=== PATIENT | male | born 1985 ===

== ENCOUNTER 2017-01-25 11:20 | Emergency (ER) | payer MEDICAID ==
[2017-01-25 11:29] VITALS: TEMP 97.5
--- NOTE | 2017-01-25 11:58 | ED PDOC ---
Arrival/HPI <Rosa Puckett - Last Filed: 01/25/17 14:32> - General Historian: Patient - History of Present Illness Time/Duration: < week Symptom Onset: Gradual Symptom Course: Unchanged Context: Walking <Mahad Mulligan - Last Filed: 01/25/17 14:45> - General Chief Complaint: Back Pain Time Seen by Provider: 01/25/17 11:23 - History of Present Illness Narrative History of Present Illness (Text): 01/25/17 11:53 31 y/o male with hx of gastric/duodenal ulcer with hx of GI bleeding presents with complaints of right flank pain. Patient states pain started 2 to 3 days ago and has persisted since then. Pain is described as aching in nature without radiation into abdomen or distally into RLE. He notes the pain is worse with activity and typically relieved with rest. He reports no trauma or injury to his back or spine. He denies GI symptoms including n/v/d, dark or bloody stools. He notes increased urinary frequency but denies dysuria or hematuria. He reports not fever, chills, sick contacts or other systemic symptoms. 01/25/17 11:59 (Mahad Mulligan) Past Medical History - Provider Review Nursing Documentation Reviewed: Yes - Past History Past History: Non-Contributing - Infectious Disease Hx of Infectious Diseases: None - Tetanus Immunization Tetanus Immunization: Unknown - Cardiac Hx Cardiac Disorders: No - Pulmonary Hx Respiratory Disorders: No - Neurological Hx Neurological Disorder: No - HEENT Hx HEENT Disorder: No - Renal Hx Renal Disorder: No - Endocrine/Metabolic Hx Endocrine Disorders: No - Hematological/Oncological Hx Blood Disorders: No - Integumentary Hx Dermatological Disorder: No - Musculoskeletal/Rheumatological Hx Musculoskeletal Disorders: No - Gastrointestinal Hx Gastrointestinal Disorders: Yes Hx Gastrointestinal Ulcer: Yes - Genitourinary/Gynecological Hx Genitourinary Disorders: No - Psychiatric Hx Psychophysiologic Disorder: No Hx Substance Use: No - Past Surgical History Past Surgical History: No Previous <Mahad Mulligan - Last Filed: 01/25/17 14:45> Family/Social History - Physician Review Nursing Documentation Reviewed: Yes Family/Social History: Diabetes Smoking Status: Never Smoked Hx Alcohol Use: Yes Frequency of alcohol use: Socially Hx Substance Use: No <Mahad Mulligan - Last Filed: 01/25/17 14:45> Allergies/Home Meds <Rosa Puckett - Last Filed: 01/25/17 14:32> <Mahad Mulligan - Last Filed: 01/25/17 14:45> Allergies/Adverse Reactions: Allergies No Known Allergies Allergy (Verified 01/25/17 11:25) Home Medications: Home Meds Medication Instructions Recorded Confirmed No Known Home Med 01/25/17 01/25/17 Review of Systems - Physician Review All systems were reviewed & negative as marked: Yes - Review of Systems Constitutional: absent: Fatigue, Fevers Eyes: Normal ENT: Normal Respiratory: absent: SOB, Cough Cardiovascular: absent: Chest Pain, Palpitations Gastrointestinal: Abdominal Pain (right flank pain ). absent: Diarrhea, Nausea , Vomiting Genitourinary Male: Frequency. absent: Dysuria, Hematuria Musculoskeletal: Back Pain (+ right flank pain ). absent: Neck Pain Skin: absent: Rash, Pruritis Neurological: absent: Headache, Dizziness, Focal Weakness Psychiatric: absent: Anxiety, Depression <Mahad Mulligan - Last Filed: 01/25/17 14:45> Physical Exam Vital Signs Reviewed: Yes Temperature: Afebrile Blood Pressure: Normal Pulse: Regular Respiratory Rate: Normal Appearance: Positive for: Well-Appearing Pain Distress: Mild Mental Status: Positive for: Alert and Oriented X 3 - Systems Exam Head: Present: Atraumatic, Normocephalic Pupils: Present: PERRL Extroacular Muscles: Present: EOMI Conjunctiva: Present: Normal Mouth: Present: Moist Mucous Membranes Pharnyx: Present: Normal Neck: Present: Normal Range of Motion Respiratory/Chest: Present: Clear to Auscultation. No: Respiratory Distress, Accessory Muscle Use, Wheezes, Rales, Rhonchi Cardiovascular: Present: Regular Rate and Rhythm, Normal S1, S2 Abdomen: Present: Normal Bowel Sounds. No: Tenderness, Distention, Peritoneal Signs, Guarding Back: Present: Normal Inspection. No: CVA Tenderness, Midline Tenderness, Paraspinal Tenderness Upper Extremity: Present: Normal Inspection. No: Cyanosis, Edema Lower Extremity: Present: Normal Inspection, NORMAL PULSES. No: Edema, CALF TENDERNESS Neurological: Present: GCS=15, CN II-XII Intact, Speech Normal Skin: Present: Warm, Dry. No: Rashes Psychiatric: Present: Alert, Oriented x 3, Normal Insight, Normal Concentration <Mahad Mulligan - Last Filed: 01/25/17 14:45> Vital Signs Temp Pulse Resp BP Pulse Ox 01/25/17 12:00 88 18 124/77 100 01/25/17 11:25 97.5 F L 87 17 119/74 99 Medical Decision Making <Rosa Puckett - Last Filed: 01/25/17 14:32> <Mahad Mulligan - Last Filed: 01/25/17 14:45> ED Course and Treatment: 01/25/17 12:29 Patient seen and examined with medical or surgical instrument maker. I have examined patient and interviewed patient at bedside. He reports pain to right side for past three days. Denies chest pain, cough or shortness of breath. Denies abdominal pain. Denies association with meals or bleeding. Denies dark or bloody stool. On exam, no abdominal pain or Leslie's signs. No vesicular rash. No cva tenderness. Lungs clear. No prior records available for review, although patient with history of "bleeding ulcer" in past. Patient's pain not colicky, appears worse with walking. Denies overdose or inappropriate use of medication. 01/25/17 14:32 Patient is in no distress with serial exams. No hypoxia, no abdominal pain. Not hypotensive or tachycardic. UA without microscopic blood. Exam NOT consistent with uti or pyelo currently. Suspect possible muscular etiology of pain. Patient is not suicidal or homidical or aggressive in ED. Cooperative, no signs of active hallucinations. (Rosa Puckett) 01/25/17 12:12 31 y/o male w/ hx GI ulcer presenting with right flank pain 2/2 renal stone vs musculoskeletal strain vs appendicitis GI etiology. Patient is resting comfortably, clinically stable. Afebrile and without significant pain. - CBC - CMP - UA - pain management - will reassess 01/25/17 14:24 Pain improved with Ibuprofen 600mg PO. Labs and urine reviewed. There is no evidence of UTI or renal stone on UA. There is no leukocytosis, evidence of renal failure or electrolyte derangement evident on laboratory results. Patient' s complaints are likely related to musculoskeletal straining. He will be advised to avoid heavy lifting and strenuous activity for 1 week to 10 days. He will be advised to f/u at [facility] for continued management of his back pain. (Mahad Mulligan) - Lab Interpretations Lab Results: 01/25/17 12:45 01/25/17 12:45 Lab Results 01/25/17 14:15: Urine Color Yellow, Urine Appearance Clear, Urine pH 6.5, Ur Specific [place] 1.025, Urine Protein Negative, Urine Glucose (UA) Negative, Urine Ketones 15 H, Urine Blood Negative, Urine Nitrate Negative, Urine Bilirubin Negative, Urine Urobilinogen 0.2, Ur Leukocyte Esterase Negative 01/25/17 12:45: WBC 5.6, RBC 4.83, Hgb 15.6, Hct 43.2, MCV 89.4, MCH 32.3, MCHC 36.1, RDW 12.5, Plt Count 213, MPV 9.5, Gran % 68.1 H, Lymph % (Auto) 18.9 L, [place] % (Auto) 11.1 H, Eos % (Auto) 1.4 L, Baso % (Auto) 0.5, Gran # 3.81, Lymph # 1.1 L, [place] # 0.6, Eos # 0.1, Baso # 0.03, Sodium 138, Potassium 4.3, Chloride 103, Carbon Dioxide 26, Anion Gap 13, BUN 13, Creatinine 0.9, Est GFR ( Amer) > 60, Est GFR (Non-Af Amer) > 60, Random Glucose 93, Calcium 9.4, Total Bilirubin 0.7, AST 27, ALT 33, Alkaline Phosphatase 45, Total Protein 7.1 , Albumin 3.9, Globulin 3.2, Albumin/Globulin Ratio 1.2 - Medication Orders Current Medication Orders: Discontinued Medications Ibuprofen (Motrin Tab) 600 mg PO STAT STA Stop: 01/25/17 12:17 Last Admin: 01/25/17 12:48 Dose: 600 MG MAR Pain/Vitals Document 01/25/17 12:48 OCS (Rec: 01/25/17 12:48 [place] [id number] Pain Reassessment Is This A Pain ReAssessment? Yes Sleep Is patient sleeping during reassessment? No Presence of Pain Presence of Pain Yes Pain Scale Used Pain Scale Used Numeric Location Left, Right or Bilateral Right Pain Location Body Site flank Description Constant Intensity 8 Scale Used Numeric - PA / INDUSTRIAL HYGIENE MANAGER / Resident Statement MD/DO has reviewed & agrees with the documentation as recorded. MD/DO has examined the patient and agrees with the treatment plan. <Rosa Puckett - Last Filed: 01/25/17 14:32> Disposition/Present on Arrival <Rosa Puckett - Last Filed: 01/25/17 14:32> - Present on Arrival Any Indicators Present on Arrival: No History of DVT/PE: No History of Uncontrolled Diabetes: No Urinary Catheter: No History of Decub. Ulcer: No History Surgical Site Infection Following: None - Disposition Have Diagnosis and Disposition been Completed?: Yes Disposition Time: 14:45 Patient Plan: Discharge <Mahad Mulligan - Last Filed: 01/25/17 14:45> - Disposition Diagnosis: Back pain Disposition: HOME/ ROUTINE Patient Problems: Current Active Problems Problem Status Diagnosed Back pain Acute Condition: GOOD Discharge Instructions (ExitCare): Acute Low Back Pain (GEN) Additional Instructions: Please see a physician at [facility] within one week for management of your back pain. If pain continues to worsen or if symptoms changes return to the emergency room for evaluation. Avoid heavy lifting or strenuous manual labor for the next 10 days. Referrals: [facility] - Follow up with primary
[2017-01-25 12:01] VITALS: BP 124/77; PULSE 88; RESP 18; O2SAT 100
[2017-01-25 12:51] LABS: ADD MANUAL DIFF? NO
[2017-01-25 13:01] LABS: BASO # 0.03 K/mm3 (0.0-2.0); BASO % 0.5 % (0.0-3.0); EOS # 0.1 (0.0-0.7); EOS % 1.4 % (1.5-5.0); GRAN # 3.81 (1.4-6.5); GRAN % 68.1 % (50.0-68.0); HEMATOCRIT 43.2 % (42.0-52.0); LYMPH # 1.1 (1.2-3.4); LYMPH % 18.9 % (22.0-35.0); MEAN CELL VOLUME 89.4 fL (80.0-105.0); MEAN CORPUSCULAR HEMOGLOBIN 32.3 pg (25.0-35.0); MEAN CORPUSCULAR HGB CONC 36.1 g/dl (31.0-37.0); MEAN PLATELET VOLUME 9.5 fl (7.0-11.0); MONO # 0.6 (0.1-0.6); MONO % 11.1 % (1.0-6.0); PLATELET COUNT 213 10^3/uL (120.0-450.0); RED CELL DISTRIBUTION WIDTH 12.5 % (11.5-14.5); WHITE BLOOD COUNT 5.6 10^3/ul (4.5-11.0)
[2017-01-25 13:04] LABS: ALB/GLOB RATIO 1.2 (1.1-1.8); ALKALINE PHOSPHATASE 45 U/L (38-133); ALT/SGPT 33 U/L (7-56); AST/SGOT 27 U/L (15-59); BILIRUBIN,TOTAL 0.7 mg/dL (0.2-1.3); BLOOD UREA NITROGEN 13 mg/dL (7-21); CALCIUM 9.4 mg/dL (8.4-10.5); CARBON DIOXIDE 26 mmol/L (21-33); CHLORIDE 103 mmol/L (98-107); GFR AFRICAN-AMERICAN > 60; GLUCOSE,RANDOM 93 mg/dL (70-110); POTASSIUM 4.3 mmol/L (3.6-5.0); SODIUM 138 mmol/L (132-148); TOTAL PROTEIN 7.1 g/dL (5.8-8.3)
[2017-01-25 14:22] LABS: PH,URINE 6.5 (4.7-8.0); URINE APPEARANCE CLEAR (CLEAR); URINE BILIRUBIN NEGATIVE (NEGATIVE); URINE BLOOD NEGATIVE (NEGATIVE); URINE COLOR YELLOW (YELLOW); URINE GLUCOSE (UA) NEGATIVE (NEGATIVE); URINE KETONE 15 mg/dL (NEGATIVE); URINE LEUKOCYTE ESTERASE NEGATIVE Leu/uL (NEGATIVE); URINE PROTEIN NEGATIVE mg/dL (<30 mg/dL); URINE UROBILINOGEN 0.2 E.U./dL (<1 E.U./dL)
== END 2017-01-25 14:35 | disposition home or self-care (01) ==
LOC: ED 11:20
DX: M54.9 Dorsalgia, unspecified (principal)